=== PATIENT | male | born 1990 ===

== ENCOUNTER 2017-02-12 16:36 | Emergency (ER) | payer SELFPAY ==
[2017-02-12 16:44] VITALS: BMI 27.4
[2017-02-12] MEDS ORDERED: Bacitracin 500 Units/gm Oint Foilpak UD ONE (16:46)
[2017-02-12] MEDS ORDERED: Lidocaine/Epi 1% 1:100000 20 ML IJ ONE (17:06)
[2017-02-12] MEDS ORDERED: Tetanus/Diphtheria Toxoids 0.5 ml Syringe IM ONE (17:32)
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
[2017-02-12 18:07] VITALS: BP 124/75; PULSE 75; RESP 18; TEMP 98.2
[2017-02-12 20:15] VITALS: O2SAT 100
== END 2017-02-12 18:00 | disposition home or self-care (01) ==
LOC: C.ER 16:36
DX: S41.111A Laceration without foreign body of right upper arm, initial encounter (principal); X99.1XXA Assault by knife, initial encounter; Z23 Encounter for immunization